=== PATIENT | female | born 1945 | race Caucasian/White ===

== ENCOUNTER 2017-01-15 12:43 | Outpatient (CLI) | payer MEDICARE, BC ==
--- NOTE | 2017-01-15 22:12 | RAD ---
LEFT SCAPULA 01/15/17 A total of three views are submitted. The scapula itself appears intact. There is some calcification of tendons inserting on the greater tubercle of the humerus. There is also a calcific density along the inferior rim of the glenoid that moves with the humeral head that could be ligamentous calcific ations as well. I cannot rule out old trauma here. There is no current fracture or area of bony dest ruction. The AC joint is not widened. There may be some calcified granulomas in the left lung. The a luciano is densely calcified. IMPRESSION: Findings suggestive of at least calcific tendonitis. I cannot exclude old trauma at the glenohumeral joint. The scapula is intact. POS: HOME
== END 2017-01-15 12:44 | disposition home or self-care (01) ==
LOC: BURRAD 12:43
PROVIDERS: ATTEND Family Medicine
DX: M25.512 Pain in left shoulder (principal)